=== PATIENT | female | born 1930 | race Caucasian/White ===

== ENCOUNTER 2017-10-13 16:11 | Observation (INO) | payer OTHER, MEDICARE ==
[~2017-10-13] VITALS: Ht 160 cm; Wt 61.8 kg
[~2017-10-13 16:11] MED LIST: ANASTROZOLE1 MG PO; ASPIR-LOW81 MG PO; DILTIAZEM 24HR360 M1 PO; ENSURE LIQUID237 ML PO; POTASSIUM CHLO10 ME4 PO; PRAVASTATIN SOD40 MG PO; VALSARTAN-HCTZ1 EAC3 PO
[2017-10-13 19:59] LABS: BASOPHIL (%) 0.2 % (0-1); EOSINOPHIL (%) 0.5 % (0-5); EOSINOPHIL COUNT 0.1 K/uL (0-0.3); HEMATOCRIT 38.2 % (36.0-46.0); HEMOGLOBIN 12.9 G/DL (11.9-15.5); IMMATURE GRANULOCYTE (%) 0.4 % (0.0-0.7); LYMPHOCYTE (%) 15.9 % (15-42); LYMPHOCYTE COUNT 2.2 K/uL (1.0-2.8); MCH 30.6 PG (29.0-34.0); MCHC 33.8 G/DL (30.0-36.0); MCV 90.5 FL (83-99); MONOCYTE (%) 8.3 % (3-12); MONOCYTE COUNT 1.2 K/uL (0-0.8); NEUTROPHIL (%) 74.7 % (45-76); NEUTROPHIL COUNT 10.4 K/uL (1.8-6.4); PLATELET COUNT 195 K/uL (156-360); RBC DIS.WIDTH-CV 12.6 % (11.8-14.6); RBC DIS.WIDTH-SD 41.2 % (39-53); RED BLOOD COUNT 4.22 M/uL (3.80-5.20); WHITE BLOOD COUNT 13.9 K/uL (4.1-10.2)
[2017-10-13 20:07] LABS: ALBUMIN 4.2 g/dL (3.2-4.8); CHLORIDE 102 mEq/L (99-109); POTASSIUM 3.6 mEq/L (3.7-5.4); SODIUM 141 mEq/L (136-147)
[2017-10-13 20:08] LABS: MAGNESIUM 2.1 mg/dL (1.3-2.7)
[2017-10-13 20:10] LABS: GLUCOSE 95 mg/dL (70-99); TOTAL PROTEIN 7.4 g/dL (6.4-8.3)
[2017-10-13 20:11] LABS: TOTAL BILIRUBIN 0.6 mg/dL (0.0-1.0)
[2017-10-13 20:13] LABS: ALKALINE PHOSPHATASE 104 IU/L (3-129); CREATININE 1.2 mg/dL (0.6-1.3); GFR ESTIMATE (CALCULATED) 45 mL/min/
[2017-10-13 20:14] LABS: UREA NITROGEN (BUN) 25 mg/dL (9-23)
[2017-10-13 20:15] LABS: AST (GOT) 30 IU/L (2-34); PTT 27.3 SEC (25-37)
[2017-10-13 20:16] LABS: ALT (GPT) 16 IU/L (3-49)
[2017-10-13 20:22] LABS: TROP-I INTERPRETATION NEGATIVE; TROPONIN-I 0.01 ng/mL (0.0-0.30)
[2017-10-13] MEDS ORDERED: EXEMESTANE25 MG PO (20:52)
[2017-10-13] MEDS ORDERED: LEVO-T88 MCG PO (20:53)
[2017-10-13 20:55] LABS: APPEARANCE CLEAR ((CLEAR)); BILIRUBIN NEGATIVE; BLOOD MODERATE; COLOR STRAW ((YELLOW)); GLUCOSE (STRIP) NEGATIVE; KETONES 5; LEUKOCYTES NEGATIVE; NITRITE NEGATIVE; PROTEIN (STRIP) 30; UROBILINOGEN 0.2 MG/DL (0.2-1.0)
[2017-10-13 21:12] LABS: BACTERIA RARE /HPF; EPITHELIAL CELLS RARE /HPF; MUCUS TRACE /LPF; UCUL ADDED? NO; WHITE BLOOD CELLS 0-5 /HPF (0-5)
[2017-10-13 23:07] VITALS: BP 178/74
[2017-10-14 03:43] VITALS: BP 156/67
[2017-10-14 07:24] VITALS: BP 149/67
[2017-10-14] MEDS ORDERED: PERCOCET 5/31 TABLET PO (09:33)
[2017-10-14] MEDS ORDERED: COLACE100 MG PO (09:33)
[2017-10-14] MEDS ORDERED: LIDODERM 5% P1 PATCH TD (09:33)
[2017-10-14 11:08] VITALS: BP 149/68
== END 2017-10-14 12:36 | disposition home or self-care (01) ==
LOC: EME 16:11 → 3EAST 20:53 → EDOF 20:53 → ENRESERV 21:02 → CANRESERV 21:02 → ENRESERV 21:03 → 3EAST 22:36
PROVIDERS: Emergency Medicine
DX: S22.21XA Fracture of manubrium, initial encounter for closed fracture (principal); V89.2XXA Person injured in unspecified motor-vehicle accident, traffic, initial encounter; Y92.410 Unspecified street and highway as the place of occurrence of the external cause; I10 Essential (primary) hypertension; E78.5 Hyperlipidemia, unspecified; Z85.3 Personal history of malignant neoplasm of breast; Z90.12 Acquired absence of left breast and nipple; Z92.21 Personal history of antineoplastic chemotherapy; E89.0 Postprocedural hypothyroidism; Z88.0 Allergy status to penicillin; Z88.1 Allergy status to other antibiotic agents; Z91.010 Allergy to peanuts
CPT/HCPCS: 70450; 71250; 71260; 72125; 72128; 74177; 80053; 81003; 83735; 84484; 85025; 85610; 85730; 99281; 99285; G0378; J1644; J2270; J7120; S0028